=== PATIENT | male | born 1995 | race African-American/Black ===

== ENCOUNTER 2016-11-05 00:27 | Emergency (ER) | payer SELFPAY ==
[~2016-11-05] VITALS: Ht 180.3 cm; Wt 75.0 kg
[2016-11-05 00:31] VITALS: BP 145/81; PULSE 84; RESP 16; TEMP 97.5; O2SAT 100
[2016-11-05 00:43] VITALS: BP 128/58; PULSE 78; RESP 18; O2SAT 99
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
[2016-11-05] MEDS ORDERED: KETOROLAC TROMETHAMINE 30 MG/ML (IVP) VIAL IV PUSH ONE (01:00)
[2016-11-05 01:14] LABS: AUTOMATED NEUTROPHIL # 2.1 TH/MM3 (1.8-7.7); BASOPHIL % 0.9 % (0.0-2.0); EOSINOPHIL # 0.1 TH/MM3 (0-0.4); EOSINOPHIL % 1.4 % (0.0-4.0); HEMATOCRIT 45.1 % (39.0-51.0); LYMPH % 43.2 % (9.0-44.0); MEAN CELL VOLUME 83.4 FL (80.0-100.0); MEAN CORPUSCULAR HEMOGLOBIN 27.9 PG (27.0-34.0); MEAN CORPUSCULAR HGB CONC 33.5 % (32.0-36.0); MONO % 8.8 % (0.0-8.0); NEUT % 45.7 % (16.0-70.0); PLATELET COUNT 232 TH/MM3 (150-450); RED CELL DISTRIBUTION WIDTH 13.7 % (11.6-17.2); WHITE BLOOD COUNT 4.6 TH/MM3 (4.0-11.0)
[2016-11-05 01:15] LABS: HEMO FLAGS AUTO DIFF
--- NOTE | 2016-11-05 01:16 | RADRPT ---
EXAM DATE/TIME: 11/05/2016 00:52 [facility] COMPARISON: No previous studies available for comparison. INDICATIONS : Shortness of breath. MEDICAL HISTORY : None. SURGICAL HISTORY : None. ENCOUNTER: Initial ACUITY: 1 day PAIN SCORE: 0/10 LOCATION: chest FINDINGS: The lungs are clear without infiltrate, nodule, or mass. There is no appreciable pleural effusion fo r technique. Heart and mediastinum are unremarkable. CONCLUSION: No acute cardiopulmonary disease. Eugenia Hdez MD on November 05, 2016 at 1:15 Board Certified Radiologist. This report was verified electronically.
[2016-11-05 01:42] LABS: ANION GAP 9 MEQ/L (5-15); BICARBONATE 24.6 MEQ/L (21.0-32.0); BLOOD UREA NITROGEN 9 MG/DL (7-18); CHLORIDE 104 MEQ/L (98-107); GLOMERULAR FILTRATION RATE 95 ML/MIN (>89); POTASSIUM 3.9 MEQ/L (3.5-5.1); SODIUM (NA) 138 MEQ/L (136-145)
[2016-11-05 02:05] LABS: SCAN/DIFF AUTO DIFF CONFIRMED
[2016-11-05 02:06] LABS: PLATELET ESTIMATE SMEAR NORMAL (NORMAL); PLATELET MORPHOLOGY NORMAL (NORMAL)
[2016-11-05 02:25] VITALS: BP 118/63; PULSE 80; RESP 18; O2SAT 99
[2016-11-05 03:49] VITALS: BP 140/68; PULSE 62; RESP 16; O2SAT 99
[2016-11-05] MEDS ORDERED: IBUP-232 PO (04:33)
--- NOTE | 2016-11-05 13:34 | EKG ---
Date Performed: 11/05/2016 Time Performed: 04:54:46 PTAGE: 21 years EKG: Sinus rhythm WITH SINUS ARRHYTHMIA ST ELEVATION, PROBABLY EARLY REPOLARIZATION NONSPECIFIC T-WAVE ABNORMALITY BOR DERLINE ECG NO PREVIOUS TRACING DOCTOR: Orville Kilpatrick Interpretating Date/Time 11/05/2016 13:33:01
--- NOTE | 2016-11-05 13:34 | EKG ---
Date Performed: 11/05/2016 Time Performed: 00:56:48 PTAGE: 21 years EKG: Sinus rhythm WITH SINUS ARRHYTHMIA ST DEVIATION AND MODERATE T-WAVE ABNORMALITY, CONSIDER ANTERIOR ISCHEMIA ABNOR MAL ECG NO PREVIOUS TRACING DOCTOR: Orville Kilpatrick Interpretating Date/Time 11/05/2016 13:34:12
== END 2016-11-05 05:01 | disposition home or self-care (01) ==
LOC: NEPE 00:27
DX: M54.2 Cervicalgia (principal); R94.31 Abnormal electrocardiogram [ECG] [EKG]; M54.5 Low back pain; R06.02 Shortness of breath
CPT/HCPCS: 71010; 80048; 84484; 85025; 93005; 96374; 99285; J1885

== ENCOUNTER 2017-05-04 16:36 | Emergency (ER) | payer BC ==
[~2017-05-04] VITALS: Ht 180.3 cm; Wt 73.5 kg
[~2017-05-04 16:36] MED LIST: IBUP-232 PO
[2017-05-04 16:37] VITALS: BP 140/62; PULSE 76; RESP 16; TEMP 98.3; O2SAT 98
--- NOTE | 2017-05-04 16:44 | PD ---
Physical Exam Date Seen by Provider: May 04, 2017 Time Seen by Provider: 16:42 Narrative 22 yo male here for rectal pain with bleeding. No medical history. No history of hemorrhoids. Pain and bleeding only with BMs. Pain is burning. Minimal blood. No urinary issues. Pain is 6/10. Vitals are stable in triage. Awaiting bed placement. Data Data Last Documented VS Vital Signs Date Time Temp Pulse Resp B/P (MAP) Pulse Ox O2 Delivery O2 Flow Rate FiO2 05/04/17 16:37 98.3 76 16 140/62 (88) 98 Room Air [facility] Medical Record Reviewed: Yes Supervised Visit with RAJENDRA: No Himanshu Forbes May 04, 2017 16:44
[2017-05-04] MEDS ORDERED: SODIUM CHLORIDE 0.9% FLUSH 10 ML FLUSH IV FLUSH PRN (17:30)
--- NOTE | 2017-05-04 17:33 | PD ---
HPI Chief Complaint: GI Complaint Time Seen by Provider: 17:21 Travel History International Travel<30 days: No Contact w/Intl Traveler<30days: No Traveled to known affect area: No History of Present Illness HPI 22-year-old male here for evaluation of possible hemorrhoids. For the last 3 days patient has had rectal pain and is noticed blood in his stool. He mainly notices blood on the toilet paper, however has also noticed blood in the toilet bowl. Pain is sharp, 6 out of 10, constant, worse with bowel movements. He reports that he has had intermittent episodes of hard stool as well as loose stool. No vomiting. No abdominal pain. No fevers. He does not insert anything into his rectum and use her with his girlfriend. [facility] Social History Alcohol Use: No Tobacco Use: No Substance Use: No Allergies-Medications (Allergen,Severity, Reaction): Coded Allergies: No Known Allergies (Unverified , 11/05/16) Reported Meds & Prescriptions Reported Meds & Active Scripts Active Ibuprofen 600 Mg Tab 600 Mg PO Q6H PRN Review of Systems Except as stated in HPI: all other systems reviewed are Neg Physical Exam Narrative GENERAL: Well-developed, well-nourished, awake, alert, comfortable, no apparent distress. SKIN: Focused skin assessment warm/dry. No pallor. HEAD: Atraumatic. Normocephalic. EYES: Pupils equal and round. No scleral icterus. No injection or drainage. ENT: Mucous membranes pink and moist. CARDIOVASCULAR: Regular rate and rhythm. No murmur appreciated. RESPIRATORY: No accessory muscle use. Clear to auscultation. Breath sounds equal bilaterally. GASTROINTESTINAL: Abdomen soft, non-tender, nondistended. Hepatic and splenic margins not palpable. RECTUM: No masses, no fissures, no external hemorrhoids, heme-positive brown stool. No fluctuance or induration. MUSCULOSKELETAL: No obvious deformities. No clubbing. No cyanosis. No edema. NEUROLOGICAL: Awake and alert. No obvious cranial nerve deficits. Motor grossly within normal limits. Normal speech. PSYCHIATRIC: Appropriate mood and affect; insight and judgment normal. Data Data Last Documented VS Vital Signs Date Time Temp Pulse Resp B/P (MAP) Pulse Ox O2 Delivery O2 Flow Rate FiO2 05/04/17 17:50 74 18 127/58 (81) 99 Room Air 05/04/17 16:37 98.3 Orders Orders Basic Metabolic Panel (Bmp) (05/04/17 17:29) Complete Blood Count With Diff (05/04/17 17:29) Prothrombin Time / Inr (Pt) (05/04/17 17:29) Act Partial Throm Time (Ptt) (05/04/17 17:29) Iv Access Insert/Monitor (05/04/17 17:29) Ecg Monitoring (05/04/17 17:29) Oximetry (05/04/17 17:29) Sodium Chloride 0.9% Flush (Ns Flush) (05/04/17 17:30) Labs Laboratory Tests Test 05/04/17 17:45 White Blood Count 4.4 TH/MM3 Red Blood Count 5.00 MIL/MM3 Hemoglobin 14.6 GM/DL Hematocrit 42.4 % Mean Corpuscular Volume 84.8 FL Mean Corpuscular Hemoglobin 29.2 PG Mean Corpuscular Hemoglobin Concent 34.5 % Red Cell Distribution Width 13.4 % Platelet Count 275 TH/MM3 Mean Platelet Volume 9.9 FL Neutrophils (%) (Auto) 58.5 % Lymphocytes (%) (Auto) 31.9 % Monocytes (%) (Auto) 8.0 % Eosinophils (%) (Auto) 1.3 % Basophils (%) (Auto) 0.3 % Neutrophils # (Auto) 2.5 TH/MM3 Lymphocytes # (Auto) 1.4 TH/MM3 Monocytes # (Auto) 0.4 TH/MM3 Eosinophils # (Auto) 0.1 TH/MM3 Basophils # (Auto) 0.0 TH/MM3 CBC Comment DIFF FINAL Differential Comment Prothrombin Time 11.9 SEC Prothromb Time International Ratio 1.1 RATIO Activated Partial Thromboplast Time 26.6 SEC Blood Urea Nitrogen 12 MG/DL Creatinine 1.24 MG/DL Random Glucose 73 MG/DL Calcium Level 8.7 MG/DL Sodium Level 140 MEQ/L Potassium Level 4.2 MEQ/L Chloride Level 106 MEQ/L Carbon Dioxide Level 27.9 MEQ/L Anion Gap 6 MEQ/L Estimat Glomerular Filtration Rate 88 ML/MIN MDM Medical Decision Making Medical Screen Exam Complete: Yes Emergency Medical Condition: Yes Differential Diagnosis Hemorrhoids, ulcerative colitis, AVM, perianal abscess unlikely Narrative Course Vital signs show heart rate 76, blood pressure 140/62, pulse ox 98% on room air , oral temp of 98.3F. CBC: WBC 4.4, hemoglobin 14.6, hematocrit 42.4, platelets 275. BMP is unremarkable. Coags are normal. Patient's abdominal exam is soft and nontender. He does have some rectal tenderness with heme positive brown stool. There is no mass, no fluctuance, no induration, no fissures, no external hemorrhoids. The patient likely has internal hemorrhoids. There is no gross blood per rectum. At this point I believe he is stable for discharge home with outpatient follow-up with gastroenterology this week. I will give him a prescription for Anusol. He was also informed to keep his stool soft with [id number] stool softener such as MiraLAX. Sits baths. He was informed on when to return to the emergency department. He verbalizes understanding and agreement with plan. [employer] Point of Care Internal Pos. & Neg. Controls: Passed Fecal Specimen Occult Blood: Positive Comment Heme positive brown stool Diagnosis Primary Impression: Rectal pain Additional Impression: Rectal bleed Referrals: Nelsy Lee MD 3 days Director Drug [facility] 3 days Additional Instructions: Follow-up with a primary care physician this week. Follow-up with brick shader Dr. Lee or a brick shader of your choice this week. Return to the emergency department for worsening symptoms or any other concerns. Scripts Hydrocortisone Rectal (Anusol-Hc Rectal) 2.5% Cream 1 APPLIC RECTAL Q4-6H Y for ITCHING/INFLAMMATION, #30 GM 0 Refills Prov: Celestino Us MD 05/04/17 Disposition: 01 DISCHARGE HOME Condition: Stable Celestino Us MD May 04, 2017 17:33
[2017-05-04 17:50] VITALS: BP 127/58; PULSE 74; RESP 18; O2SAT 99
[2017-05-04 17:59] LABS: AUTOMATED NEUTROPHIL # 2.5 TH/MM3 (1.8-7.7); BASOPHIL % 0.3 % (0.0-2.0); EOSINOPHIL # 0.1 TH/MM3 (0-0.4); EOSINOPHIL % 1.3 % (0.0-4.0); HEMATOCRIT 42.4 % (39.0-51.0); HEMO FLAGS DIFF FINAL; LYMPH % 31.9 % (9.0-44.0); LYMPHOCYTE # 1.4 TH/MM3 (1.0-4.8); MEAN CELL VOLUME 84.8 FL (80.0-100.0); MEAN CORPUSCULAR HEMOGLOBIN 29.2 PG (27.0-34.0); MEAN CORPUSCULAR HGB CONC 34.5 % (32.0-36.0); NEUT % 58.5 % (16.0-70.0); PLATELET COUNT 275 TH/MM3 (150-450); RED CELL DISTRIBUTION WIDTH 13.4 % (11.6-17.2); WHITE BLOOD COUNT 4.4 TH/MM3 (4.0-11.0)
[2017-05-04 18:06] LABS: APTT (PATIENT) 26.6 SEC (24.3-30.1); INTERNATIONAL NORMALIZED RATIO 1.1 RATIO; PROTHROMBIN TIME - PATIENT 11.9 SEC (9.8-11.6)
[2017-05-04 18:24] LABS: BICARBONATE 27.9 MEQ/L (21.0-32.0); POTASSIUM 4.2 MEQ/L (3.5-5.1)
[2017-05-04] MEDS ORDERED: HYDR2.5%T RECTAL (18:33)
== END 2017-05-04 19:05 | disposition home or self-care (01) ==
LOC: NEPD 16:36
DX: K62.89 Other specified diseases of anus and rectum (principal); K62.5 Hemorrhage of anus and rectum
CPT/HCPCS: 80048; 85025; 85610; 85730; 99283